=== PATIENT | female | born 1990 | race Caucasian/White ===

== ENCOUNTER 2020-05-22 22:22 | Emergency (ER) | payer MEDICARE, MEDICAID ==
[2020-05-22] MEDS ORDERED: Albuterol/Ipratropium 3.0-0.5 MG/3 ML Neb Soln NEB ONE (22:24)
[2020-05-22] MEDS ORDERED: Sodium Chloride 0.9% 2.5 ML Syringe FLUSH PRN (22:24)
[2020-05-22] MEDS ORDERED: Sodium Chloride 0.9% 10 ML Syringe FLUSH PRN (22:24)
[2020-05-22] MEDS ORDERED: methylPREDNISolone Sodium Succinate 125 MG/2 ML SDV IVPUSH ONE (22:24)
[2020-05-22] MEDS ORDERED: LORazepam 2 MG/ML SDV IM ONE (22:27)
[2020-05-22] MEDS ORDERED: Acetaminophen 325 MG Tab PO ONE (22:39)
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
--- NOTE | 2020-05-22 23:10 | CR ---
INDICATION: Dyspnea TECHNIQUE: Chest radiograph 1 view COMPARISON: None FINDINGS: Moderate to severe degradation of image quality noted due to body habitus. Mediastinum: The mediastinum is normal in appearance. Mild cardiac enlargement is present but may be accentuated by the portable technique. Lung: Both lungs are unremarkable in appearance. No sign of pleural effusion seen. No pneumothorax is identified. Bone and Soft tissue: Unremarkable for age. IMPRESSION: 1. Mild cardiac enlargement is present but may be accentuated by the portable technique. Dictated by Lewis Nieves MD @ 05/22/2020 11:09:21 PM Dictated by: Lewis Nieves MD @ 05/22/2020 23:09:25 (Electronically Signed)
== END 2020-05-22 23:40 | disposition home or self-care (01) ==
LOC: MW.ED 22:22
DX: F41.9 Anxiety disorder, unspecified (principal); J45.909 Unspecified asthma, uncomplicated; R51.9 Headache, unspecified
CPT/HCPCS: 71045; 96372; 99283; A9270; J2060

== ENCOUNTER 2020-06-05 10:04 | Emergency (ER) | payer MEDICARE, MEDICAID ==
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
[2020-06-05] MEDS ORDERED: Ondansetron 4 MG Tab.DIS PO ONE (10:55)
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
== END 2020-06-05 12:33 | disposition home or self-care (01) ==
LOC: MW.ED 10:04
DX: S16.1XXA Strain of muscle, fascia and tendon at neck level, initial encounter (principal); Z79.899 Other long term (current) drug therapy; Y04.0XXA Assault by unarmed brawl or fight, initial encounter
CPT/HCPCS: 36415; 70450; 70450-26; 72125; 72125-26; 72128; 72128-26; 84703; 99284; 99285-25

== ENCOUNTER 2020-08-09 20:09 | Emergency (ER) | payer MEDICARE, MEDICAID ==
[2020-08-09] MEDS ORDERED: Amoxicillin/Clavulanate K 875-125 MG Tab PO ONE (21:40)
[2020-08-09] MEDS ORDERED: Ketorolac 60 MG/2 ML SDV IM ONE (21:40)
--- NOTE | 2020-08-09 21:43 | EDM.PDOC ---
ED HPI GENERAL MEDICAL PROBLEM - General Chief Complaint: General Stated Complaint: RT SIDE TOOTH PAIN Time Seen by Provider: 08/09/20 20:21 Source of Information: Reports: Patient History Limitations: Reports: No Limitations - History of Present Illness INITIAL COMMENTS - FREE TEXT/NARRATIVE: HISTORY AND PHYSICAL: History of present illness: The patient is a 30-year-old female who presents to the emergency department with complaints of right lower back molar dental pain for 4 days. The patient states that she has had dental pain like this in the past because she does not have dental insurance and just cannot afford it. Review of systems: As per history of present illness and below otherwise all systems reviewed and negative. Past medical history: As per history of present illness and as reviewed below otherwise noncontributory. Surgical history: As per history of present illness and as reviewed below otherwise noncontributory. Social history: See social history for further information Family history: As per history of present illness and as reviewed below otherwise noncontributory. Physical exam: General: Well developed and well nourished. Alert and orientated x 3. Nontoxic in appearance and in no acute distress. Vital signs are stable and have been reviewed by me. Nursing notes were reviewed. HEENT: Atraumatic, normocephalic, pupils equal and reactive bilaterally, negative for conjunctival pallor or scleral icterus, mucous membranes moist, throat clear, neck supple, nontender, trachea midline. Lower back mentation is very poor. The patient has multiple broken teeth at the gumline. The back 3 molars gums are swollen and inflamed. No drooling or trismus noted. No meningeal signs. No hot potato voice noted. Lungs: Clear to auscultation bilaterally. No wheezes, rales, or rhonchi. Chest nontender. Normal work of breathing, no accessory muscles used. Heart: S1S2, regular rate and rhythm without overt murmur, gallops, or rubs. No JVD. No peripheral edema Abdomen: Soft, nondistended, nontender. Normoactive bowel sounds. Negative for masses or costovertebral tenderness. Skin: Intact, warm, dry. No lesions or rashes noted. Hematologic: No petechiae or purpra. Mucosa appropriate color and normal nail bed color and refill. Extremities: Atraumatic, moves all extremities per self without difficulty or deficits, negative for cords or calf pain. Neurovascular unremarkable. Neuro: Awake, alert, oriented. Cranial nerves II through XII unremarkable. Cerebellum unremarkable. Motor and sensory unremarkable throughout. Exam nonfocal. Psychiatric: Mood and affect are appropriate. Normal thought process. Answering questions appropriately. Notes: *This patient was seen and evaluated during the 2019 SARS-CoV-2 novel coronavirus pandemic period. Community viral transmission is ongoing at time of this encounter and the emergency department is operating under pandemic response procedures. Stated above the patient presents with dental pain for 4 days. She says that she is unable to afford dental pain. I have offered Toradol 60 mg IM which the patient has agreed to for pain control. I have ordered an antibiotic Augmentin 875 for the infection. I offered a dental ball and the patient declined. I will discharge the patient with a prescription for Augmentin 875 twice daily for 7 days. She understands definitive care needs to be by a dentist. I have talked with the patient about today's findings, in addition to providing specific details for plan of care. Reassessment at the time of disposition demonstrates that the patient is in no acute distress. The patient is stable for discharge, counseling was provided and we discussed in great detail signs and symptoms that would prompt them to return to the Emergency Department. Medication, follow up and supportive care measures were reviewed and discussed. Voices understanding and is agreeable to plan of care. Denies any further questions or concerns at this time. Therapeutics: Toradol 60 mg, Augmentin 875 mg Prescription: Augmentin 875 mg p.o. twice daily for 7 days Impression: Dental caries Plan: 1. You were evaluated today on an emergent basis. Your right lower back molar dental pain was evaluated and found to be infected. I treated your pain with Toradol 60 mg injection. I have prescribed Augmentin 875 twice daily for 7 days. You received your first dose in the emergency department. Definitive care is to follow-up with a dentist. Use warm for pain relief. 2. You can alternate Tylenol and ibuprofen as needed for pain and fever management. 3. We encourage you to follow up with your primary care provider and/or recommended specialist in the next few days for re-evaluation and further care/management. 4. If your symptoms should worsen, new symptoms develop or any of the signs and symptoms we discussed should arise please return to the emergency room or call 911 (if needed). Definitive disposition and diagnosis as appropriate pending reevaluation and review of above. right lower jaw Pain Score (Numeric/FACES): 10 - Related Data Allergies Allergy/AdvReac Type Severity Reaction Status Date / Time No Known Allergies Allergy Verified 08/09/20 21:24 Home Meds: Home Meds Escitalopram [Lexapro] 10 mg PO DAILY 06/05/20 [History] Ibuprofen [Ibu] 800 mg PO BID PRN #30 tablet 06/05/20 [Rx] Amoxicillin/Clavulanate K [Augmentin 875-125 MG] 1 tab PO BID 7 Days #13 tab 08/09/20 [Rx] traZODone 50 mg PO BEDTIME 08/09/20 [History] Past Medical History Respiratory History: Reports: Asthma Neurological History: Reports: Other (See Below) Other Neuro History: "stress induced seizures" Psychiatric History: Reports: Anxiety, Depression, PTSD, Other (See Below) Other Psychiatric History: "personality disorder" Endocrine/Metabolic History: Reports: Obesity/BMI 30+ Social & Family History - Family History Family Medical History: No Pertinent Family History - Caffeine Use Caffeine Use: Reports: None - Recreational Drug Use Recreational Drug Use: No ED ROS GENERAL - Review of Systems Review Of Systems: Comprehensive ROS is negative, except as noted in HPI. ED EXAM, GENERAL - Physical Exam Exam: See Below (See dictation) Course - Vital Signs Last Recorded V/S: Last Vital Signs Temp 97 F 08/09/20 21:18 Pulse 98 08/09/20 21:18 Resp 18 08/09/20 21:18 BP Pulse Ox 97 08/09/20 21:18 - Orders/Labs/Meds Meds: Medications Discontinued Medications Generic Name Dose Route Start Last Admin Trade Name Freq PRN Reason Stop Dose Admin Amoxicillin/Clavulanate Potassium 1 tab 08/09/20 21:40 Amoxicillin/Clavulanate K 875-125 Mg Tab PO 08/09/20 21:41 ONETIME ONE Ketorolac Tromethamine 60 mg 08/09/20 21:40 Ketorolac 60 Mg/2 Ml Sdv IM 08/09/20 21:41 ONETIME ONE Departure - Departure Time of Disposition: 21:42 Disposition: Home, Self-Care 01 Condition: Good Clinical Impression: Dental caries - Discharge Information *PRESCRIPTION DRUG MONITORING PROGRAM REVIEWED*: Not Applicable *COPY OF PRESCRIPTION DRUG MONITORING REPORT IN PATIENT YAW: Not Applicable Prescriptions: Amoxicillin/Clavulanate K [Augmentin 875-125 MG] 1 tab PO BID 7 Days #13 tab Instructions: Dental Caries, Pediatric Referrals: Gerson Hernandez MD [Primary Care Provider] - Forms: ED Department Discharge Additional Instructions: The following information is given to patients seen in the emergency department who are being discharged to home. This information is to outline your options for follow-up care. We provide all patients seen in our emergency department with a follow-up referral. The need for follow-up, as well as the timing and circumstances, are variable depending upon the specifics of your emergency department visit. If you don't have a primary care physician on staff, we will provide you with a referral. We always advise you to contact your personal physician following an emergency department visit to inform them of the circumstance of the visit and for follow-up with them and/or the need for any referrals to a consulting specialist. The emergency department will also refer you to a specialist when appropriate. This referral assures that you have the opportunity for follow-up care with a specialist. All of these measure are taken in an effort to provide you with optimal care, which includes your follow-up. Under all circumstances we always encourage you to contact your private physician who remains a resource for coordinating your care. When calling for follow-up care, please make the office aware that this follow-up is from your recent emergency room visit. If for any reason you are refused follow-up, please contact the [facility] Emergency Department at and asked to speak to the emergency department charge nurse. [facility] - Primary Care [address] [place] [id number] [address] Plan: 1. You were evaluated today on an emergent basis. Your right lower back molar dental pain was evaluated and found to be infected. I treated your pain with Toradol 60 mg injection. I have prescribed Augmentin 875 twice daily for 7 days. You received your first dose in the emergency department. Definitive care is to follow-up with a dentist. Use warm for pain relief. 2. You can alternate Tylenol and ibuprofen as needed for pain and fever management. 3. We encourage you to follow up with your primary care provider and/or r ecommended specialist in the next few days for re-evaluation and further care/management. 4. If your symptoms should worsen, new symptoms develop or any of the signs and symptoms we discussed should arise please return to the emergency room or call 911 (if needed). Sepsis Event Note (ED) - Evaluation Sepsis Screening Result: No Definite Risk - Focused Exam Vital Signs: Vital Signs Temp Pulse Resp Pulse Ox 08/09/20 21:18 97 F 98 18 97
== END 2020-08-09 22:10 | disposition home or self-care (01) ==
LOC: MW.ED 20:09
DX: K02.9 Dental caries, unspecified (principal); J45.909 Unspecified asthma, uncomplicated; E66.9 Obesity, unspecified; Z68.42 Body mass index [BMI] 45.0-49.9, adult; Z79.899 Other long term (current) drug therapy
CPT/HCPCS: 96372; 99282; A9270; J1885; 99283

== ENCOUNTER 2020-08-11 00:58 | Emergency (ER) | payer MEDICARE, MEDICAID ==
[2020-08-11] MEDS ORDERED: Ketorolac 30 MG/ML SDV IM ONE (01:27)
--- NOTE | 2020-08-11 01:34 | EDM.PDOC ---
ED HPI GENERAL MEDICAL PROBLEM - General Chief Complaint: General Stated Complaint: JAW PAIN- RIGHT SIDE Time Seen by Provider: 08/11/20 01:08 - History of Present Illness INITIAL COMMENTS - FREE TEXT/NARRATIVE: History of present illness: [] The patient complains of 3 days of severe pain in the area of her teeth #30 and 31 that are carious and she is was seen here yesterday and was started on Augmentin which she claims she is taking. The patient has no trismus ptyalism or difficulty with speech. There is no mass in her neck. She claims she cannot get into see a dentist because she does not have insurance or money. Review of systems: As per history of present illness and below otherwise all systems reviewed and negative. Past medical history: As per history of present illness and as reviewed below otherwise nonc ontributory. Surgical history: As per history of present illness and as reviewed below otherwise noncontributory. Social history: No reported history of drug or alcohol abuse. Family history: As per history of present illness and as reviewed below otherwise noncontributory. Physical exam: Constitutional - well developed, well-nourished and in no acute distress HEENT -carious teeth especially #30 and 31 with #32 missing. No trismus. Able to manage her secretions. Normal voice. No neck mass. Normocephalic, no evidence of trauma - external nose and mouth normal - no mass in neck and no JVD - mucosae moist EYES - full EOM, PERRL, no icterus - no evidence of inflammation, injection, or drainage Respiratory - no respiratory distress, equal bilateral expansion Cardiovascular - Regular Rhythm with S1 and S2 appreciated and no murmur, gallop or rub. Musculoskeletal no gross deformity of long bones or joints - no tenderness, swelling or edema Neurologic - Alert and oriented times four - CN II-XII grossly intact - motor sensory and coordination symmetrically normal Psychiatric - appropriate mood and affect with normal thought content Hematologic - No petechiae or purpura - mucosa appropriate color and sclera not pale - normal nail bed color and refill Integument - no rash or evidence of trauma - normal turgor Diagnostics: [] Therapeutics: [] Impression: [] Plan: [] Definitive disposition and diagnosis as appropriate pending reevaluation and review of above. Right Jaw Pain Score (Numeric/FACES): 7 - Related Data Allergies Allergy/AdvReac Type Severity Reaction Status Date / Time No Known Allergies Allergy Verified 08/09/20 21:24 Home Meds: Home Meds Escitalopram [Lexapro] 10 mg PO DAILY 06/05/20 [History] Ibuprofen [Ibu] 800 mg PO BID PRN #30 tablet 06/05/20 [Rx] Amoxicillin/Clavulanate K [Augmentin 875-125 MG] 1 tab PO BID 7 Days #13 tab 08/09/20 [Rx] traZODone 50 mg PO BEDTIME 08/09/20 [History] Acetaminophen/oxyCODONE [Percocet 325-5 MG] 2 each PO Q4HR PRN #14 tab 08/11/20 [Rx] Past Medical History HEENT History: Reports: None Cardiovascular History: Reports: None Respiratory History: Reports: Asthma Neurological History: Reports: Other (See Below) Other Neuro History: "stress induced seizures" Psychiatric History: Reports: Anxiety, Depression, PTSD, Other (See Below) Other Psychiatric History: "personality disorder" Endocrine/Metabolic History: Reports: Obesity/BMI 30+ Social & Family History - Family History Family Medical History: No Pertinent Family History - Tobacco Use Tobacco Use Status *Q: Never Tobacco User - Caffeine Use Caffeine Use: Reports: None - Recreational Drug Use Recreational Drug Use: No ED ROS GENERAL - Review of Systems Review Of Systems: Comprehensive ROS is negative, except as noted in HPI. ED EXAM, GENERAL - Physical Exam Exam: See Below Free Text/Narrative:: Physical exam is in the HPI Course - Vital Signs Last Recorded V/S: Last Vital Signs Temp 36.2 C 08/11/20 01:09 Pulse 93 08/11/20 01:09 Resp 18 08/11/20 01:09 BP 123/84 08/11/20 01:09 Pulse Ox 96 08/11/20 01:09 - Orders/Labs/Meds Meds: Medications Discontinued Medications Generic Name Dose Route Start Last Admin Trade Name Freq PRN Reason Stop Dose Admin Ketorolac Tromethamine 30 mg 08/11/20 01:27 Ketorolac 30 Mg/Ml Sdv IM 08/11/20 01:28 ONETIME ONE Departure - Departure Time of Disposition: 01:30 Disposition: Home, Self-Care 01 Condition: Good Clinical Impression: Dental abscess - Discharge Information Prescriptions: Acetaminophen/oxyCODONE [Percocet 325-5 MG] 2 each PO Q4HR PRN #14 tab PRN Reason: Pain (Severe 7-10) Instructions: Dental Abscess, [id number] Referrals: Gerson Hernandez MD [Primary Care Provider] - Additional Instructions: Try to see a dentist. [facility] - Primary Care [address] [place] [address] [facility] [address] [place] [id number] The following information is given to patients seen in the emergency department who are being discharged to home. This information is to outline your options for follow-up care. We provide all patients seen in our emergency department with a follow-up referral. The need for follow-up, as well as the timing and circumstances, are variable depending upon the specifics of your emergency department visit. If you don't have a primary care physician on staff, we will provide you with a referral. We always advise you to contact your personal physician following an emergency department visit to inform them of the circumstance of the visit and for follow-up with them and/or the need for any referrals to a consulting specialist. The emergency department will also refer you to a specialist when appropriate. This referral assures that you have the opportunity for follow-up care with a specialist. All of these measure are taken in an effort to provide you with optimal care, which includes your follow-up. Under all circumstances we always encourage you to contact your private physician who remains a resource for coordinating your care. When calling for follow-up care, please make the office aware that this follow-up is from your recent emergency room visit. If for any reason you are refused follow-up, please contact the [facility] Emergency Department at and asked to speak to the emergency department charge nurse. Sepsis Event Note (ED) - Evaluation Sepsis Screening Result: No Definite Risk - Focused Exam Vital Signs: Vital Signs Temp Pulse Resp BP Pulse Ox 08/11/20 01:09 36.2 C 93 18 123/84 96
== END 2020-08-11 01:45 | disposition home or self-care (01) ==
LOC: MW.ED 00:58
DX: K04.7 Periapical abscess without sinus (principal); E66.9 Obesity, unspecified; Z68.30 Body mass index [BMI] 30.0-30.9, adult
CPT/HCPCS: 96372; 99282; J1885; 99283

== ENCOUNTER 2020-09-26 01:39 | Emergency (ER) | payer MEDICARE, MEDICAID ==
[2020-09-26] MEDS ORDERED: Ibuprofen 600 MG Tab PO ONE (01:48)
[2020-09-26] MEDS ORDERED: Cephalexin 500 MG Cap PO ONE (01:48)
[2020-09-26] MEDS ORDERED: traMADol 50 MG Tab PO ONE (01:48)
--- NOTE | 2020-09-26 01:52 | EDM.PDOC ---
ED HPI GENERAL MEDICAL PROBLEM - General Chief Complaint: General Stated Complaint: TOOTH PAIN Time Seen by Provider: 09/26/20 01:50 - History of Present Illness INITIAL COMMENTS - FREE TEXT/NARRATIVE: HISTORY AND PHYSICAL: History of present illness: This 30-year-old female who presents ER today secondary to dental pain to her right lower and left lower molars x1 to 2 days. Patient reports that she has extremely poor dentition but has been unable to see dentist secondary to financial issues. Patient ports that she is had work done on her 6 upper teeth and that her Medicaid only covers 6 teeth in a lifetime as everything left to be [id number]. Patient denies any recent fevers, shakes, chills, nausea, vomiting, diarrhea, dysuria, frequency, urgency. Review of systems: As per history of present illness and below otherwise all systems reviewed and negative. Past medical history: As per history of present illness and as reviewed below otherwise noncontributory. Surgical history: As per history of present illness and as reviewed below otherwise noncontributory. Social history: No reported history of drug abuse. Family history: As per history of present illness and as reviewed below otherwise noncont ributory. Physical exam: This patient was seen and evaluated during the 2019 SARS-CoV-2 novel coronavirus pandemic period. Community viral transmission is ongoing at time of this encounter and the emergency department is operating under pandemic response procedures. Constitutional: Patient is oriented to person, place, and time. Appears well- developed and well-nourished. No distress. HEENT: Moist mucous membranes Head: Normocephalic and atraumatic Eyes: Right eye exhibits no discharge. Left eye exhibits no discharge. No scleral icterus Neck: Normal range of motion. No tracheal deviation present. Cardiovascular: Normal rate and regular rhythm. Pulmonary: Effort normal, no respiratory distress. Abdominal: No distention Musculoskeletal: Normal range of motion Neurologic: Alert and oriented to person, place and time. Skin: [place], warm and dry. Psychiatric: Normal mood and affect. Behavior is normal. Judgment and thought content normal. Nursing note and vital signs have been reviewed Patient's ER physical exam significant for tenderness to palpation to her right and left lower molars with significant amount of dental caries and fractured teeth. Patient has overall poor dentition. Diagnostics: [] Therapeutics: [] Assessment and plan: 30-year-old female presents ER today with dental pain. Patient will get started on Keflex and ibuprofen will be given a dose of Ultram tonight to assist her with her pain and discomfort. Patient has been encouraged to follow-up with dentist soon as possible Definitive disposition and diagnosis as appropriate pending reevaluation and review of above. - Related Data Allergies Allergy/AdvReac Type Severity Reaction Status Date / Time No Known Allergies Allergy Verified 09/26/20 01:49 Home Meds: Home Meds Escitalopram [Lexapro] 10 mg PO DAILY 06/05/20 [History] Ibuprofen [Ibu] 800 mg PO BID PRN #30 tablet 06/05/20 [Rx] Amoxicillin/Clavulanate K [Augmentin 875-125 MG] 1 tab PO BID 7 Days #13 tab 08/09/20 [Rx] traZODone 50 mg PO BEDTIME 08/09/20 [History] Acetaminophen/oxyCODONE [Percocet 325-5 MG] 2 each PO Q4HR PRN #14 tab 08/11/20 [Rx] Ibuprofen 600 mg PO Q6HR PRN #30 tablet 09/26/20 [Rx] cephALEXin [Keflex] 500 mg PO Q8H #30 cap 09/26/20 [Rx] Past Medical History HEENT History: Reports: None Cardiovascular History: Reports: None Respiratory History: Reports: Asthma Neurological History: Reports: Other (See Below) Other Neuro History: "stress induced seizures" Psychiatric History: Reports: Anxiety, Depression, PTSD, Other (See Below) Other Psychiatric History: "personality disorder" Endocrine/Metabolic History: Reports: Obesity/BMI 30+ Social & Family History - Family History Family Medical History: No Pertinent Family History - Caffeine Use Caffeine Use: Reports: None ED ROS GENERAL - Review of Systems Review Of Systems: See Below ED EXAM, GENERAL - Physical Exam Exam: See Below Course - Orders/Labs/Meds Orders: Active Orders 24 hr Category Date Time Status Ibuprofen [Motrin] Med 09/26/20 01:48 Once 600 mg PO ONETIME ONE cephALEXin [Keflex] Med 09/26/20 01:48 Once 500 mg PO ONETIME ONE traMADol [Ultram] Med 09/26/20 01:48 Once 50 mg PO ONETIME ONE Departure - Departure Time of Disposition: 01:50 Disposition: Home, Self-Care 01 Condition: Good Clinical Impression: Dental abscess, Dental caries - Discharge Information Instructions: Dental Abscess Referrals: Gesron Hernandez MD [Primary Care Provider] - Additional Instructions: Your seen and evaluated in the ER today secondary to toothache from multiple cavities and poor dentition. Please make appointment to follow-up with a dentist as soon as possible. You will get started on Keflex and ibuprofen to assist with your pain and discomfort. You have been given a dose of Keflex, ibuprofen, Ultram in the ED. The following information is given to patients seen in the emergency department who are being discharged to home. This information is to outline your options for follow-up care. We provide all patients seen in our emergency department with a follow-up referral. The need for follow-up, as well as the timing and circumstances, are variable depending upon the specifics of your emergency department visit. If you don't have a primary care physician on staff, we will provide you with a referral. We always advise you to contact your personal physician following an emergency department visit to inform them of the circumstance of the visit and for follow-up with them and/or the need for any referrals to a consulting specialist. The emergency department will also refer you to a specialist when appropriate. This referral assures that you have the opportunity for follow-up care with a specialist. All of these measure are taken in an effort to provide you with optimal care, which includes your follow-up. Under all circumstances we always encourage you to contact your private physician who remains a resource for coordinating your care. When calling for follow-up care, please make the office aware that this follow-up is from your recent emergency room visit. If for any reason you are refused follow-up, please contact the [facility] Emergency Department at and asked to speak to the emergency department charge nurse. [facility] - Primary Care [address] [place] [address] [id number] [address] [id number] - My Orders Last 24 Hours: My Active Orders 09/26/20 01:48 Ibuprofen [Motrin] 600 mg PO ONETIME ONE cephALEXin [Keflex] 500 mg PO ONETIME ONE traMADol [Ultram] 50 mg PO ONETIME ONE - Assessment/Plan Last 24 Hours: My Active Orders 09/26/20 01:48 Ibuprofen [Motrin] 600 mg PO ONETIME ONE cephALEXin [Keflex] 500 mg PO ONETIME ONE traMADol [Ultram] 50 mg PO ONETIME ONE
== END 2020-09-26 02:16 | disposition home or self-care (01) ==
LOC: MW.ED 01:39
DX: K04.7 Periapical abscess without sinus (principal); K02.9 Dental caries, unspecified; J45.909 Unspecified asthma, uncomplicated; E66.9 Obesity, unspecified; Z68.41 Body mass index [BMI] 40.0-44.9, adult; Z79.899 Other long term (current) drug therapy
CPT/HCPCS: 99282; A9270; 99283

== ENCOUNTER 2020-10-04 17:37 | Emergency (ER) | payer MEDICARE, MEDICAID ==
--- NOTE | 2020-10-04 19:49 | EDM.PDOC ---
ED HPI GENERAL MEDICAL PROBLEM - General Chief Complaint: Allergic Reaction Stated Complaint: POSSIBLE ALLERGIC REACTION FROM COVID SHOT Time Seen by Provider: 10/04/20 19:38 Source of Information: Reports: Patient - History of Present Illness INITIAL COMMENTS - FREE TEXT/NARRATIVE: History of present illness: 30-year-old female presenting with left arm redness and rash that has been worsening over the last 3 days since receiving the Covid shot. She did not have any other symptoms including no body aches or fevers. She received the [employer] vaccine. She reports she has never had a reaction like this to vaccines in the past. She has not had any difficulty breathing or new onset throat tightness. She reports she always has some throat soreness that has not changed at all. Review of systems: As per history of present illness and below otherwise all systems reviewed and negative. Past medical history: As per history of present illness and as reviewed below otherwise noncontrib utory. Asthma, anxiety Surgical history: As per history of present illness and as reviewed below otherwise noncontributory. Social history: No reported history of drug or alcohol abuse. Never smoker Family history: As per history of present illness and as reviewed below otherwise noncontributory. Physical exam: GEN: no acute distress, well appearing HEENT: Atraumatic, normocephalic, mucous membranes moist, Neck: supple, nontender, trachea midline. Lungs: No respiratory distress. Heart: RRR Abdomen: Nondistended Back: Full range of motion Extremities: Atraumatic. Neurovascularly intact. Mildly tender over the left deltoid area where shot was placed. Erythema at this area. Neuro: Awake, alert, oriented. Neuro Exam nonfocal. Skin: warm, dry, erythema and induration surrounding the vaccination site. Minimally warm to touch. No fluctuance. No drainage. Diagnostics: None Therapeutics: Plan for Benadryl at home MDM: Well-appearing, no distress, no fevers or chills, redness at site of Covid vaccination. Suspect immune response and not acute infection. No drainage or fluctuance. Discussed plan with patient to take Benadryl or Zyrtec p.o. and topical Benadryl/cool compresses for symptom relief and monitor zone of redness. Do not suspect infection, discussed plan of care with patient. Impression: Immune response to Covid vaccine Plan: [] Definitive disposition and diagnosis as appropriate pending reevaluation and review of above. Left Arm Pain Score (Numeric/FACES): 5 - Related Data Allergies Allergy/AdvReac Type Severity Reaction Status Date / Time No Known Allergies Allergy Verified 09/26/20 01:49 Home Meds: Home Meds Escitalopram [Lexapro] 10 mg PO DAILY 06/05/20 [History] traZODone 50 mg PO BEDTIME 08/09/20 [History] Ibuprofen 600 mg PO Q6HR PRN #30 tablet 09/26/20 [Rx] Past Medical History HEENT History: Reports: None Cardiovascular History: Reports: None Respiratory History: Reports: Asthma Genitourinary History: Reports: None Neurological History: Reports: Other (See Below) Other Neuro History: "stress induced seizures" Psychiatric History: Reports: Anxiety, Depression, PTSD, Other (See Below) Other Psychiatric History: "personality disorder" Endocrine/Metabolic History: Reports: Obesity/BMI 30+ Hematologic History: Reports: None - Infectious Disease History Infectious Disease History: Reports: None Social & Family History - Family History Family Medical History: No Pertinent Family History - Tobacco Use Tobacco Use Status *Q: Never Tobacco User - Caffeine Use Caffeine Use: Reports: None - Recreational Drug Use Recreational Drug Use: No ED ROS ALLERGIC REACTION - Review of Systems Review Of Systems: See Below (See HPI) ED EXAM GENERAL NO PERIP PULSE - Physical Exam Exam: See Below (See dictation) Course - Vital Signs Last Recorded V/S: Last Vital Signs Temp 97.3 F 10/04/20 19:29 Pulse 90 10/04/20 19:29 Resp 18 10/04/20 19:29 BP 138/89 10/04/20 19:29 Pulse Ox 96 10/04/20 19:29 Departure - Departure Time of Disposition: 19:55 Disposition: Home, Self-Care 01 Clinical Impression: Skin rash - Discharge Information Instructions: Rash, Adult Referrals: Gerson Hernandez MD [Primary Care Provider] - 2 Days Forms: ED Department Discharge Additional Instructions: The rash on your arm appears to be an immune response to the vaccine and not an allergic reaction or infection. However you may take allergy medications to help with your symptoms. You may take Zyrtec 10 mg daily or Benadryl 25 mg every 8 hours for the itching and you may use topical Benadryl cream to the area to help with the itching. You may also use cool compresses to the area to help with the symptoms. Do not use warm compresses or scratch at the red area as this will make the histamine response worse. If you develop a high fever or if the rash spreads outward or becomes worse, please seek reevaluation with your primary care physician or the emergency department. The following information is given to patients seen in the emergency department who are being discharged to home. This information is to outline your options for follow-up care. We provide all patients seen in our emergency department with a follow-up referral. The need for follow-up, as well as the timing and circumstances, are variable depending upon the specifics of your emergency department visit. If you don't have a primary care physician on staff, we will provide you with a referral. We always advise you to contact your personal physician following an emergency department visit to inform them of the circumstance of the visit and for follow-up with them and/or the need for any referrals to a consulting specialist. The emergency department will also refer you to a specialist when appropriate. This referral assures that you have the opportunity for follow-up care with a specialist. All of these measure are taken in an effort to provide you with optimal care, which includes your follow-up. Under all circumstances we always encourage you to contact your private physician who remains a resource for coordinating your care. When calling for follow-up care, please make the office aware that this follow-up is from your recent emergency room visit. If for any reason you are refused follow-up, please contact the [facility] Emergency Department at and asked to speak to the emergency department charge nurse. Sepsis Event Note (ED) - Evaluation Sepsis Screening Result: No Definite Risk - Focused Exam Vital Signs: Vital Signs Temp Pulse Resp BP Pulse Ox 10/04/20 19:29 97.3 F 90 18 138/89 96
== END 2020-10-04 20:07 | disposition home or self-care (01) ==
LOC: MW.ED 17:37
DX: R21 Rash and other nonspecific skin eruption (principal); E66.9 Obesity, unspecified; Z68.42 Body mass index [BMI] 45.0-49.9, adult
CPT/HCPCS: 99282

== ENCOUNTER 2020-11-14 18:12 | Emergency (ER) | payer MEDICARE, MEDICAID ==
--- NOTE | 2020-11-14 18:40 | EDM.PDOC ---
ED HPI GENERAL MEDICAL PROBLEM - General Chief Complaint: General Stated Complaint: POSSIBLY DISLOCATED JAW Time Seen by Provider: 11/14/20 18:28 - History of Present Illness INITIAL COMMENTS - FREE TEXT/NARRATIVE: History of present illness[] The patient has jaw pain after she had what she calls a seizure. 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 This time her jaw hurts after that. She reports severe pain with opening closing her jaw and she points to her TMJ. Review of systems: As per history of present illness and below otherwise all systems reviewed and negative. Past medical history: As per history of present illness and as reviewed below otherwise noncontributory. Surgical history: As per history of present illness and as reviewed below otherwise noncontributory. Social history: No reported history of drug or alcohol abuse. Family history: As per history of present illness and as reviewed below otherwise noncontributory. Physical exam: Constitutional - well developed, well-nourished and in no acute distress HEENT -tender TMJ on the right and worse when she goes to the range of motion however there is no real crepitation. She is able to hold a tongue depressor be tween her teeth on the right and the left. Normocephalic, no evidence of trauma - external nose and mouth normal - no mass in neck and no JVD - mucosae moist EYES - full EOM, PERRL, no icterus - no evidence of inflammation, injection, or drainage Respiratory - no respiratory distress, equal bilateral expansion Musculoskeletal no gross deformity of long bones or joints - no tenderness, swelling or edema Neurologic - Alert and oriented times four - CN II-XII grossly intact - motor sensory and coordination symmetrically normal Psychiatric - appropriate mood and affect with normal thought content Hematologic - No petechiae or purpura - mucosa appropriate color and sclera not pale - normal nail bed color and refill Integument - no rash or evidence of trauma - normal turgor Diagnostics: [] Therapeutics: [] Impression: [] Plan: [] Definitive disposition and diagnosis as appropriate pending reevaluation and review of above. Right Jaw Pain Score (Numeric/FACES): 6 - Related Data Allergies Allergy/AdvReac Type Severity Reaction Status Date / Time No Known Allergies Allergy Verified 11/14/20 18:27 Home Meds: Home Meds Escitalopram [Lexapro] 10 mg PO DAILY 06/05/20 [History] traZODone 50 mg PO BEDTIME 08/09/20 [History] Ibuprofen 600 mg PO Q6HR PRN #30 tablet 09/26/20 [Rx] Past Medical History HEENT History: Reports: None Cardiovascular History: Reports: None Respiratory History: Reports: Asthma Genitourinary History: Reports: None Neurological History: Reports: Other (See Below) Other Neuro History: "stress induced seizures" Psychiatric History: Reports: Anxiety, Depression, PTSD, Other (See Below) Other Psychiatric History: "personality disorder" Endocrine/Metabolic History: Reports: Obesity/BMI 30+ Hematologic History: Reports: None - Infectious Disease History Infectious Disease History: Reports: None Social & Family History - Family History Family Medical History: No Pertinent Family History - Tobacco Use Tobacco Use Status *Q: Never Tobacco User - Caffeine Use Caffeine Use: Reports: None - Recreational Drug Use Recreational Drug Use: No ED ROS GENERAL - Review of Systems Review Of Systems: Comprehensive ROS is negative, except as noted in HPI. ED EXAM, GENERAL - Physical Exam Exam: See Below Free Text/Narrative:: My physical exam is in the HPI Course - Vital Signs Last Recorded V/S: Last Vital Signs Temp 36.4 C 11/14/20 18:28 Pulse 98 11/14/20 18:28 Resp 18 11/14/20 18:28 BP 133/82 11/14/20 18:30 Pulse Ox 98 11/14/20 18:28 - Orders/Labs/Meds Orders: Active Orders 24 hr Category Date Time Status Mandible Comp Min 4V [CR] Stat Exams 11/14/20 18:34 Ordered Departure - Departure Time of Disposition: 18:41 Disposition: Home, Self-Care 01 Condition: Good Clinical Impression: TMJ arthritis - Discharge Information Instructions: Temporomandibular Joint Syndrome Referrals: Gerson Hernandez MD [Primary Care Provider] - Additional Instructions: Use a mouthpiece to avoid getting her teeth at night. Take anti-inflammatory medicine for the pain. Follow-up with oral surgery. Your dentist can recommend an oral surgeon but you may have to go to [place] or [place]. [facility] - Primary Care [address] [place] [id number] [facility] [address] [place] [address] The following information is given to patients seen in the emergency department who are being discharged to home. This information is to outline your options for follow-up care. We provide all patients seen in our emergency department with a follow-up referral. The need for follow-up, as well as the timing and circumstances, are variable depending upon the specifics of your emergency department visit. If you don't have a primary care physician on staff, we will provide you with a referral. We always advise you to contact your personal physician following an emergency department visit to inform them of the circumstance of the visit and for follow-up with them and/or the need for any referrals to a consulting specialist. The emergency department will also refer you to a specialist when appropriate. This referral assures that you have the opportunity for follow-up care with a specialist. All of these measure are taken in an effort to provide you with optimal care, which includes your follow-up. Under all circumstances we always encourage you to contact your private physician who remains a resource for coordinating your care. When calling for follow-up care, please make the office aware that this follow-up is from your re cent emergency room visit. If for any reason you are refused follow-up, please contact the [facility] Emergency Department at and asked to speak to the emergency department charge nurse. Sepsis Event Note (ED) - Evaluation Sepsis Screening Result: No Definite Risk - Focused Exam Vital Signs: Vital Signs Temp Pulse Resp BP Pulse Ox 11/14/20 18:30 133/82 11/14/20 18:28 36.4 C 98 18 98 - My Orders Last 24 Hours: My Active Orders 11/14/20 18:34 Mandible Comp Min 4V [CR] Stat - Assessment/Plan Last 24 Hours: My Active Orders 11/14/20 18:34 Mandible Comp Min 4V [CR] Stat
--- NOTE | 2020-11-14 20:02 | CR ---
HISTORY: Temporomandibular joint pain. Prior seizure. TECHNIQUE: Four views of the mandible. COMPARISON: No prior. FINDINGS: No TMJ dislocation. No acute fracture. Extensive dental hardware. Maxillary sinuses and frontal sinuses appear clear. Ethmoid air cells grossly clear. IMPRESSION: 1. No fracture. 2. No TMJ dislocation. Dictated by Barry Rashid MD @ 11/14/2020 8:01:46 PM (Electronically Signed)
== END 2020-11-14 20:31 | disposition home or self-care (01) ==
LOC: MW.ED 18:12
DX: M26.649 Arthritis of unspecified temporomandibular joint (principal); E66.9 Obesity, unspecified; Z68.1 Body mass index [BMI] 19.9 or less, adult
CPT/HCPCS: 70110; 70110-26; 99283-25

== ENCOUNTER 2020-12-13 09:39 | Emergency (ER) | payer MEDICARE, MEDICAID ==
[2020-12-13] MEDS ORDERED: Ondansetron 4 MG Tab.DIS PO ONE (10:22)
[2020-12-13] MEDS ORDERED: Acetaminophen 325 MG Tab PO ONE (10:22)
--- NOTE | 2020-12-13 10:29 | EDM.PDOC ---
ED HPI GENERAL MEDICAL PROBLEM - General Chief Complaint: ENT Problem Stated Complaint: TOOTH PAIN Time Seen by Provider: 12/13/20 09:43 Source of Information: Reports: Patient History Limitations: Reports: No Limitations - History of Present Illness INITIAL COMMENTS - FREE TEXT/NARRATIVE: HISTORY AND PHYSICAL: History of present illness: Review of systems: As per history of present illness and below otherwise all systems reviewed and negative. Past medical history: As per history of present illness and as reviewed below otherwise noncontributory. Surgical history: As per history of present illness and as reviewed below otherwise noncontributory. Social history: See social history for further information Family history: As per history of present illness and as reviewed below otherwise noncontributory. Physical exam: General: Well developed and well nourished. Alert and orientated x 3. Nontoxic in appearance and in no acute distress. Vital signs are stable and have been reviewed by me. Nursing notes were reviewed. HEENT: Atraumatic, normocephalic, pupils equal and reactive bilaterally, negative for conjunctival pallor or scleral icterus, mucous membranes moist, TMs normal bilaterally, throat clear, neck supple, nontender, trachea midline. Very poor dentition with multiple broken teeth along the right lower gumline. No drooling or trismus noted. No meningeal signs. No hot potato voice noted. Lungs: Normal work of breathing, no accessory muscles used. Heart: . No JVD. No peripheral edema Abdomen: Soft, nondistended, nontender. Normoactive bowel sounds. Negative for masses or costovertebral tenderness. Skin: Intact, warm, dry. No lesions or rashes noted. Hematologic: No petechiae or purpra. Mucosa appropriate color and normal nail bed color and refill. Extremities: Atraumatic, moves all extremities per self without difficulty or deficits, negative for cords or calf pain. Neurovascular unremarkable. Neuro: Awake, alert, oriented. Cranial nerves II through XII unremarkable. Cerebellum unremarkable. Motor and sensory unremarkable throughout. Exam nonfocal. Psychiatric: Mood and affect are appropriate. Normal thought process. Answering questions appropriately. Notes: *This patient was seen and evaluated during the 2019 SARS-CoV-2 novel coronavirus pandemic period. Community viral transmission is ongoing at time of this encounter and the emergency department is operating under pandemic response procedures. The patient is a 30-year-old female who presents to the emergency room with right lower jaw pain and is found to have extensive dental caries and very poor dentition. The patient states that she could be but it is too early to test and therefore declines a test. For this reason we will give the patient Tylenol for pain control and Zofran for her nausea. I have prescribed penicillin 500 mg 4 times daily for 10 days. The patient is agreeable with this discharge plan. I have talked with the patient about today's findings, in addition to providing specific details for plan of care. Reassessment at the time of disposition demonstrates that the patient is in no acute distress. The patient is stable for discharge, counseling was provided and we discussed in great detail signs and symptoms that would prompt them to return to the Emergency Department. Medication, follow up and supportive care measures were reviewed and discussed. Voices understanding and is agreeable to plan of care. Denies any further questions or concerns at this time. Therapeutics: Tylenol, Zofran Prescription: Penicillin 500 mg 4 times daily x10-day Impression: Dental caries Plan: 1. You were evaluated today on an emergent basis. Your pain was evaluated and found to have a dental infection of your right lower jaw. Definitive care is to see a dentist as you have extensive dental infection. As you were concerned that you could be I have given you Tylenol and for the pain control and Zofran for your nausea. Prescribed penicillin 500 mg daily 4 times a day for 10 days. Be sure to take the entire dose of the medication. You can use Tylenol for pain. 2. You can alternate Tylenol and ibuprofen as needed for pain and fever management. 3. We encourage you to follow up with your primary care provider and/or recommended specialist in the next few days for re-evaluation and further care/ management. 4. If your symptoms should worsen, new symptoms develop or any of the signs and symptoms we discussed should arise please return to the emergency room or call 911 (if needed). Definitive disposition and diagnosis as appropriate pending reevaluation and review of above. right tooth Pain Score (Numeric/FACES): 6 - Related Data Allergies Allergy/AdvReac Type Severity Reaction Status Date / Time amphetamine [From Adderall] Allergy Other Verified 12/13/20 10:27 dextroamphetamine Allergy Other Verified 12/13/20 10:27 [From Adderall] Home Meds: Home Meds Escitalopram [Lexapro] 10 mg PO DAILY 06/05/20 [History] traZODone 50 mg PO BEDTIME 08/09/20 [History] Ibuprofen 600 mg PO Q6HR PRN #30 tablet 09/26/20 [Rx] Penicillin V Potassium [Veetids] 500 mg PO Q6H 10 Days #40 tab 12/13/20 [Rx] Past Medical History HEENT History: Reports: None Cardiovascular History: Reports: None Respiratory History: Reports: Asthma Genitourinary History: Reports: None Neurological History: Reports: Other (See Below) Other Neuro History: "stress induced seizures" Psychiatric History: Reports: Anxiety, Depression, PTSD, Other (See Below) Other Psychiatric History: "personality disorder" Endocrine/Metabolic History: Reports: Obesity/BMI 30+ Hematologic History: Reports: None - Infectious Disease History Infectious Disease History: Reports: None Social & Family History - Family History Family Medical History: No Pertinent Family History - Caffeine Use Caffeine Use: Reports: None ED ROS ENT - Review of Systems Review Of Systems: Comprehensive ROS is negative, except as noted in HPI. ED EXAM, ENT - Physical Exam Exam: See Below (See dictation) Course - Vital Signs Last Recorded V/S: Last Vital Signs Temp 97.2 F 12/13/20 10:10 Pulse 101 H 12/13/20 10:38 Resp 16 12/13/20 10:38 BP 144/91 H 12/13/20 10:38 Pulse Ox 96 12/13/20 10:38 - Orders/Labs/Meds Meds: Medications Discontinued Medications Generic Name Dose Route Start Last Admin Trade Name Freq PRN Reason Stop Dose Admin Acetaminophen 975 mg 12/13/20 10:22 12/13/20 10:37 Acetaminophen 325 Mg Tab PO 12/13/20 10:23 975 mg NOW ONE Administration Ondansetron HCl 4 mg 12/13/20 10:22 12/13/20 10:37 Ondansetron 4 Mg Tab.Dis PO 12/13/20 10:23 4 mg ONETIME ONE Administration Departure - Departure Time of Disposition: 10:28 Disposition: Home, Self-Care 01 Condition: Good Clinical Impression: Dental caries extending into dentin - Discharge Information *PRESCRIPTION DRUG MONITORING PROGRAM REVIEWED*: Not Applicable *COPY OF PRESCRIPTION DRUG MONITORING REPORT IN PATIENT YAW: Not Applicable Prescriptions: Penicillin V Potassium [Veetids] 500 mg PO Q6H 10 Days #40 tab Instructions: Dental Caries, Adult Referrals: Gerson Hernandez MD [Primary Care Provider] - Forms: ED Department Discharge Additional Instructions: The following information is given to patients seen in the emergency department who are being discharged to home. This information is to outline your options for follow-up care. We provide all patients seen in our emergency department with a follow-up referral. The need for follow-up, as well as the timing and circumstances, are variable depending upon the specifics of your emergency department visit. If you don't have a primary care physician on staff, we will provide you with a referral. We always advise you to contact your personal physician following an emergency department visit to inform them of the circumstance of the visit and for follow-up with them and/or the need for any referrals to a consulting specialist. The emergency department will also refer you to a specialist when appropriate. This referral assures that you have the opportunity for follow-up care with a specialist. All of these measure are taken in an effort to provide you with optimal care, which includes your follow-up. Under all circumstances we always encourage you to contact your private physician who remains a resource for coordinating your care. When calling for follow-up care, please make the office aware that this follow-up is from your recent emergency room visit. If for any reason you are refused follow-up, please contact the [facility] Emergency Department at and asked to speak to the emergency department charge nurse. [facility] Primary [facility] [address] [place] [address] [id number] [address] [address] Sepsis Event Note (ED) - Evaluation Sepsis Screening Result: No Definite Risk - Focused Exam Vital Signs: Vital Signs Temp Pulse Resp BP Pulse Ox 12/13/20 10:38 101 H 16 144/91 H 96 12/13/20 10:10 97.2 F 95 16 157/99 H 96
== END 2020-12-13 10:42 | disposition home or self-care (01) ==
LOC: MW.ED 09:39
DX: K02.9 Dental caries, unspecified (principal); J45.909 Unspecified asthma, uncomplicated; E66.9 Obesity, unspecified; Z68.42 Body mass index [BMI] 45.0-49.9, adult; Z88.8 Allergy status to other drugs, medicaments and biological substances; Z79.899 Other long term (current) drug therapy
CPT/HCPCS: 99282; A9270

== ENCOUNTER 2021-01-10 15:19 | Emergency (ER) | payer MEDICARE, MEDICAID ==
--- NOTE | 2021-01-10 17:44 | PCM.EKG ---
#1 Interpretation EKG Interpretation Comments: EKG done 01/10/2021 at 3:51 PM shows sinus rhythm heart rate 84 HI 163 axis 73 QRS within normal limits ST and T minimal changes possibly secondary to baseline wander. Impression no acute injury
[2021-01-10] MEDS ORDERED: Sodium Chloride 0.9% 2.5 ML Syringe FLUSH PRN (19:51)
[2021-01-10] MEDS ORDERED: Sodium Chloride 0.9% 10 ML Syringe FLUSH PRN (19:51)
[2021-01-10] MEDS ORDERED: Acetaminophen/Butalbital/Caffeine 325-50-40 MG Tab PO ONE (19:52)
--- NOTE | 2021-01-10 19:54 | EDM.PDOC ---
ED HPI GENERAL MEDICAL PROBLEM - General Chief Complaint: Headache Stated Complaint: HEAD PAIN Time Seen by Provider: 01/10/21 19:46 Source of Information: Reports: Patient History Limitations: Reports: No Limitations - History of Present Illness INITIAL COMMENTS - FREE TEXT/NARRATIVE: 30-year-old female past medical history migraine headaches presents for left- sided headache. Patient states the headache is been going on for about the last 3 days and initially started behind her eye and into her left sabianist area but is now radiating into her left posterior head and neck. She states this feels different than her typical headaches. She denies any light sensitivity which is typical of her migraines. Denies any one-sided body weakness. Denies any slurred speech. Denies any fevers. Notes chronic cough unchanged. She does note some nausea but is not vomiting. She has tried Motrin at home without relief. Head Pain Score (Numeric/FACES): 7 - Related Data Allergies Allergy/AdvReac Type Severity Reaction Status Date / Time amphetamine [From Adderall] Allergy Other Verified 12/13/20 10:27 dextroamphetamine Allergy Other Verified 12/13/20 10:27 [From Adderall] Home Meds: Home Meds Escitalopram [Lexapro] 10 mg PO DAILY 06/05/20 [History] traZODone 50 mg PO BEDTIME 08/09/20 [History] Ibuprofen 600 mg PO Q6HR PRN #30 tablet 09/26/20 [Rx] Penicillin V Potassium [Veetids] 500 mg PO Q6H 10 Days #40 tab 12/13/20 [Rx] Amoxicillin/Potassium Clav [Augmentin 875-125 Tablet] 1 each PO BID 10 Days #20 tablet 01/10/21 [Rx] Fluticasone Propionate [Flonase] 2 spray YARIEL DAILY 14 Days #1 bottle 01/10/21 [Rx] Past Medical History HEENT History: Reports: None Cardiovascular History: Reports: None Respiratory History: Reports: Asthma Genitourinary History: Reports: None Neurological History: Reports: Other (See Below) Other Neuro History: "stress induced seizures" Psychiatric History: Reports: Anxiety, Depression, PTSD, Other (See Below) Other Psychiatric History: "personality disorder" Endocrine/Metabolic History: Reports: Obesity/BMI 30+ Hematologic History: Reports: None - Infectious Disease History Infectious Disease History: Reports: None - Past Surgical History GI Surgical History: Reports: Cholecystectomy Social & Family History - Family History Family Medical History: No Pertinent Family History - Caffeine Use Caffeine Use: Reports: None ED ROS GENERAL - Review of Systems Review Of Systems: Comprehensive ROS is negative, except as noted in HPI. ED EXAM, GENERAL - Physical Exam Exam: See Below Exam Limited By: No Limitations General Appearance: Alert, WD/WN, No Apparent Distress Eye Exam: Bilateral Eye: EOMI, PERRL Ears: Hearing Grossly Normal Throat/Mouth: Normal Voice, No Airway Compromise Head: Atraumatic, Normocephalic Neck: Normal Inspection Respiratory/Chest: No Respiratory Distress, Lungs Clear, Normal Breath Sounds, No Accessory Muscle Use Cardiovascular: Normal Peripheral Pulses, Regular Rate, Rhythm Extremities: Normal Inspection Neurological: Alert, Oriented, CN II-XII Intact, Normal Cognition, Normal Gait, No Motor/Sensory Deficits Psychiatric: Normal Affect, Normal Mood Skin Exam: Warm, Dry, Intact, Normal Color Course - Vital Signs Last Recorded V/S: Last Vital Signs Temp Pulse 88 01/10/21 15:48 Resp 16 01/10/21 15:48 BP 125/89 01/10/21 15:48 Pulse Ox 98 01/10/21 15:48 - Orders/Labs/Meds Orders: Active Orders 24 hr Category Date Time Status CULTURE URINE [MREF] Stat Lab 01/10/21 16:05 Stop Req Labs: Laboratory Tests 01/10/21 01/10/21 Range/Units 16:05 16:05 Urine Color YELLOW Urine Appearance SLT CLOUDY Urine pH 6.0 (5.0-8.0) Ur Specific Baker >= 1.030 (1.001-1.035) Urine Protein NEGATIVE (NEGATIVE) mg/dL Urine Glucose (UA) NEGATIVE (NEGATIVE) mg/dL Urine Ketones NEGATIVE (NEGATIVE) mg/dL Urine Occult Blood NEGATIVE (NEGATIVE) Urine Nitrite NEGATIVE (NEGATIVE) Urine Bilirubin NEGATIVE (NEGATIVE) Urine Urobilinogen 0.2 (<2.0) EU/dL Ur Leukocyte Esterase TRACE H (NEGATIVE) Urine RBC 0-2 (0-2/HPF) Urine WBC 2-3 (0-5/HPF) Ur Epithelial Cells FEW (NONE-FEW) Urine Bacteria FEW (NEGATIVE) Urine HCG, Qual NEGATIVE (NEGATIVE) Meds: Medications Discontinued Medications Generic Name Dose Route Start Last Admin Trade Name Freq PRN Reason Stop Dose Admin Acetaminophen/Butalbital/Caffeine 1 tab 01/10/21 19:52 01/10/21 20:10 Acetaminophen/Butalbital/Caffeine 325-50-40 Mg Tab PO 01/10/21 19:53 1 tab ONETIME ONE Administration Diphenhydramine HCl 25 mg 01/10/21 19:51 Diphenhydramine 50 Mg/Ml Sdv IVPUSH 01/10/21 19:52 ONETIME ONE Sodium Chloride 1,000 mls @ 999 mls/hr 01/10/21 19:51 Normal Saline IV 01/10/21 20:51 .Bolus ONE Ketorolac Tromethamine 15 mg 01/10/21 19:51 Ketorolac 15 Mg/Ml Sdv IVPUSH 01/10/21 19:52 STAT STA Metoclopramide HCl 10 mg 01/10/21 19:51 Metoclopramide 10 Mg/2 Ml Sdv IVPUSH 01/10/21 19:52 ONETIME ONE Sodium Chloride 10 ml 01/10/21 19:51 Sodium Chloride 0.9% 10 Ml Syringe FLUSH ASDIRECTED PRN Keep Vein Open Sodium Chloride 2.5 ml 01/10/21 19:51 Sodium Chloride 0.9% 2.5 Ml Syringe FLUSH ASDIRECTED PRN Keep Vein Open - Re-Assessments/Exams Free Text/Narrative Re-Assessment/Exam: 01/10/21 20:21 Patient declines labs and medications. She is willing to take Fioricet. 01/10/21 20:[address] without acute pathology. Patient does have large amount of left maxillary mucus consistent with possible sinusitis. Will place on Augmentin given the correlation with your pain. Departure - Departure Time of Disposition: 20:48 Disposition: Home, Self-Care 01 Condition: Good Clinical Impression: Sinusitis Qualifiers: Sinusitis location: frontal Chronicity: acute Recurrence: non-recurrent Qualified Code(s): J01.10 - Acute frontal sinusitis, unspecified - Discharge Information Prescriptions: Amoxicillin/Potassium Clav [Augmentin 875-125 Tablet] 1 each PO BID 10 Days #20 tablet Fluticasone Propionate [Flonase] 2 spray YARIEL DAILY 14 Days #1 bottle Instructions: Sinus Headache, [id number] Referrals: PCP,None [Primary Care Provider] - Forms: ED Department Discharge Additional Instructions: Your CT scan shows a large accumulation of mucus within your left frontal sinus es consistent with sinusitis. I prescribed a medication called Augmentin which is an antibiotic. I have also prescribed a medication called Flonase which is a nasal decongestant. The following information is given to patients seen in the emergency department who are being discharged to home. This information is to outline your options for follow-up care. We provide all patients seen in our emergency department with a follow-up referral. The need for follow-up, as well as the timing and circumstances, are variable depending upon the specifics of your emergency department visit. If you don't have a primary care physician on staff, we will provide you with a referral. We always advise you to contact your personal physician following an emergency department visit to inform them of the circumstance of the visit and for follow-up with them and/or the need for any referrals to a consulting specialist. The emergency department will also refer you to a specialist when appropriate. This referral assures that you have the opportunity for follow-up care with a specialist. All of these measure are taken in an effort to provide you with optimal care, which includes your follow-up. Under all circumstances we always encourage you to contact your private physician who remains a resource for coordinating your care. When calling for follow-up care, please make the office aware that this follow-up is from your recent emergency room visit. If for any reason you are refused follow-up, please contact the [facility] Emergency Department at and asked to speak to the emergency department charge nurse. Please follow up with your primary care physician. If you do not have a primary care physician, see below: [facility] [address] [place] [id number] [facility] [address] [place] [address] [facility] [address] [place] [id number] Sepsis Event Note (ED) - Evaluation Sepsis Screening Result: No Definite Risk - Focused Exam Vital Signs: Vital Signs Pulse Resp BP Pulse Ox 01/10/21 15:48 88 16 125/89 98
[2021-01-10] MEDS: Sodium Chloride 0.9% 1,000 ML IV ONE ×2 (20:10→21:21)
[2021-01-10] MEDS: Metoclopramide 10 MG/2 ML SDV IVPUSH ONE ×2 (20:11→21:21)
[2021-01-10] MEDS: Ketorolac 15 MG/ML SDV IVPUSH STA ×2 (20:11→21:21)
[2021-01-10] MEDS: diphenhydrAMINE 50 MG/ML SDV IVPUSH ONE ×2 (20:11→21:21)
--- NOTE | 2021-01-10 20:43 | CT ---
Clinical INDICATION: Left-sided headache for 3 days. TECHNIQUE: Axial noncontrast CT cuts were performed from the skull base to the vertex. FINDINGS: There is no intracranial mass, hemorrhage, infarction or contusion. There is no midline shift or transtentorial herniation. The calvarium is intact. There is a large amount of mucus almost entirely filling the left maxillary sinus. There is a trace of fluid in the right maxillary sinus. The orbital contents appear normal. IMPRESSION: 1. Normal-appearing brain. 2. There is large amount mucous almost entirely filling the left maxillary sinus. Please note that all CT scans at this facility use dose modulation, iterative reconstruction, and/or weight-based dosing when appropriate to reduce radiation dose to as low as reasonably achievable. Dictated by Harlan Curiel MD @ 01/10/2021 8:43:10 PM (Electronically Signed)
== END 2021-01-10 21:25 | disposition home or self-care (01) ==
LOC: MW.ED 15:19
DX: J01.10 Acute frontal sinusitis, unspecified (principal); E66.9 Obesity, unspecified; Z88.8 Allergy status to other drugs, medicaments and biological substances; Z68.30 Body mass index [BMI] 30.0-30.9, adult
CPT/HCPCS: 70450; 81001; 81025; 87086; 93005; 99284; A9270; J1200; J1885; J2765; J7030

== ENCOUNTER 2021-01-24 22:10 | Emergency (ER) | payer MEDICARE, MEDICAID ==
[2021-01-24] MEDS ORDERED: Azithromycin 250 MG Tab PO ONE (22:49)
[2021-01-24] MEDS ORDERED: Ibuprofen 600 MG Tab PO ONE (22:49)
--- NOTE | 2021-01-24 22:51 | EDM.PDOC ---
ED HPI GENERAL MEDICAL PROBLEM - General Chief Complaint: General Stated Complaint: POSSIBLE SINUS INFECTION Time Seen by Provider: 01/24/21 22:38 - History of Present Illness INITIAL COMMENTS - FREE TEXT/NARRATIVE: HISTORY AND PHYSICAL: History of present illness: This 30-year-old female who presents ER today secondary to cough, congestion, sinus pressure that she feels is similar to her prior sinus infections. Patient ports she has not had a Covid vaccination. Patient is refusing Covid testing in the ED per her report. Patient denies any documented fevers but her boyfriend ports that she did feel warm a couple days ago. Patient denies any vomiting or diarrhea. Patient reports has been tolerating p.o. solids and liquids very well. Patient denies any dysuria, frequency, urgency, chest pain, dull pain. Patient reports that she has cough with some dark sputum. Patient has any shortness of breath. Review of systems: As per history of present illness and below otherwise all systems reviewed and negative. Past medical history: As per history of present illness and as reviewed below otherwise noncontributory. Surgical history: As per history of present illness and as reviewed below otherwise noncontrib utory. Social history: No reported history of drug abuse. Family history: As per history of present illness and as reviewed below otherwise noncontributory. Physical exam: This patient was seen and evaluated during the 2019 SARS-CoV-2 novel coronavirus pandemic period. Community viral transmission is ongoing at time of this encounter and the emergency department is operating under pandemic response procedures. Constitutional: Patient is oriented to person, place, and time. Appears well- developed and well-nourished. No distress. HEENT: Moist mucous membranes Head: Normocephalic and atraumatic Eyes: Right eye exhibits no discharge. Left eye exhibits no discharge. No scleral icterus Neck: Normal range of motion. No tracheal deviation present. Cardiovascular: Normal rate and regular rhythm. Pulmonary: Effort normal, no respiratory distress. Abdominal: No distention Musculoskeletal: Normal range of motion Neurologic: Alert and oriented to person, place and time. Skin: [place], warm and dry. Psychiatric: Normal mood and affect. Behavior is normal. Judgment and thought content normal. Nursing note and vital signs have been reviewed Diagnostics: Patient refused testing for Covid/influenza Therapeutics: Zithromax 500 mg p.o. Assessment and plan: 30-year-old female who presents ER today with signs symptoms consistent with a viral upper respiratory infection versus sinus infection versus Covid versus influenza. Patient is adamantly refusing swabbing for Covid and influenza testing. I have discussed with the patient that she should quarantine herself since I am unable to rule out Covid. Patient was given a prescription for Zithromax per her request and she is requesting a work note for this weekend. Patient reports that she does not work until the following weekend. Definitive disposition and diagnosis as appropriate pending reevaluation and review of above. generalized Pain Score (Numeric/FACES): 4 - Related Data Allergies Allergy/AdvReac Type Severity Reaction Status Date / Time amphetamine [From Adderall] Allergy Other Verified 01/24/21 22:23 dextroamphetamine Allergy Other Verified 01/24/21 22:23 [From Adderall] Home Meds: Home Meds Escitalopram [Lexapro] 10 mg PO DAILY 06/05/20 [History] traZODone 50 mg PO BEDTIME 08/09/20 [History] Azithromycin [Zithromax] 250 mg PO DAILY #4 tablet 01/24/21 [Rx] Ibuprofen 600 mg PO Q6HR PRN #30 tablet 01/24/21 [Rx] Past Medical History HEENT History: Reports: None Cardiovascular History: Reports: None Respiratory History: Reports: Asthma Gastrointestinal History: Reports: None Genitourinary History: Reports: None 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 Musculoskeletal History: Reports: None Neurological History: Reports: Other (See Below) Other Neuro History: "stress induced seizures" Psychiatric History: Reports: Anxiety, Depression, PTSD, Other (See Below) Other Psychiatric History: "personality disorder" Endocrine/Metabolic History: Reports: Obesity/BMI 30+ 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 Hematologic History: Reports: None Immunologic History: Reports: None Oncologic (Cancer) History: Reports: None Dermatologic History: Reports: None - Infectious Disease History Infectious Disease History: Reports: None - Past Surgical History Head Surgeries/Procedures: Reports: None GI Surgical History: Reports: Cholecystectomy Social & Family History - Family History Family Medical History: No Pertinent Family History - Caffeine Use Caffeine Use: Reports: None - Recreational Drug Use Recreational Drug Use: No ED ROS GENERAL - Review of Systems Review Of Systems: See Below ED EXAM, GENERAL - Physical Exam Exam: See Below Course - Vital Signs Last Recorded V/S: Last Vital Signs Temp 96.9 F 01/24/21 22:20 Pulse 104 H 01/24/21 22:20 Resp 20 01/24/21 22:20 BP 147/89 H 01/24/21 22:20 Pulse Ox 96 01/24/21 22:20 Departure - Departure Time of Disposition: 22:48 Disposition: Home, Self-Care 01 Condition: Good Clinical Impression: Sinusitis, Viral illness - Discharge Information Instructions: Sinusitis, Adult, [id number], Viral Illness, Adult Referrals: Gerson Hernandez MD [Primary Care Provider] - Additional Instructions: You were seen and evaluated in the ER today secondary to signs and symptoms of a sinus infection, COVID-19, influenza, or whole host of other viral infections. You will be started on Zithromax in the ED. If you change your mind about wanting to be tested for Covid or influenza please return to the ED we can do that for you. The following information is given to patients seen in the emergency department who are being discharged to home. This information is to outline your options for follow-up care. We provide all patients seen in our emergency department w ith a follow-up referral. The need for follow-up, as well as the timing and circumstances, are variable depending upon the specifics of your emergency department visit. If you don't have a primary care physician on staff, we will provide you with a referral. We always advise you to contact your personal physician following an emergency department visit to inform them of the circumstance of the visit and for follow-up with them and/or the need for any referrals to a consulting specialist. The emergency department will also refer you to a specialist when appropriate. This referral assures that you have the opportunity for follow-up care with a specialist. All of these measure are taken in an effort to provide you with optimal care, which includes your follow-up. Under all circumstances we always encourage you to contact your private physician who remains a resource for coordinating your care. When calling for follow-up care, please make the office aware that this follow-up is from your recent emergency room visit. If for any reason you are refused follow-up, please contact the [facility] Emergency Department at and asked to speak to the emergency department charge nurse. [facility] [address], [place] [address] [address] Sepsis Event Note (ED) - Evaluation Sepsis Screening Result: No Definite Risk - Focused Exam Vital Signs: Vital Signs Temp Pulse Resp BP Pulse Ox 01/24/21 22:20 96.9 F 104 H 20 147/89 H 96
== END 2021-01-24 23:01 | disposition home or self-care (01) ==
LOC: MW.ED 22:10
DX: B34.9 Viral infection, unspecified (principal); J32.9 Chronic sinusitis, unspecified; E66.9 Obesity, unspecified; Z68.42 Body mass index [BMI] 45.0-49.9, adult; Z88.8 Allergy status to other drugs, medicaments and biological substances
CPT/HCPCS: 99283; A9270

== ENCOUNTER 2021-06-20 02:46 | Emergency (ER) | payer MEDICARE, MEDICAID ==
[2021-06-20] MEDS ORDERED: Ketorolac 60 MG/2 ML SDV IM ONE (03:13)
== END 2021-06-20 03:30 | disposition home or self-care (01) ==
LOC: MW.ED 02:46
DX: K02.9 Dental caries, unspecified (principal); E66.9 Obesity, unspecified; Z68.42 Body mass index [BMI] 45.0-49.9, adult; Z90.49 Acquired absence of other specified parts of digestive tract; Z87.898 Personal history of other specified conditions; Z88.8 Allergy status to other drugs, medicaments and biological substances
CPT/HCPCS: 96372; 99282; J1885

== ENCOUNTER 2021-07-19 19:30 | Emergency (ER) | payer MEDICARE, MEDICAID ==
[2021-07-19] MEDS ORDERED: Dexamethasone 4 MG Tab PO ONE (21:13)
== END 2021-07-19 21:31 | disposition home or self-care (01) ==
LOC: MW.ED 19:30
DX: J01.90 Acute sinusitis, unspecified (principal); J45.909 Unspecified asthma, uncomplicated; E66.9 Obesity, unspecified; Z68.42 Body mass index [BMI] 45.0-49.9, adult; Z90.49 Acquired absence of other specified parts of digestive tract; Z87.898 Personal history of other specified conditions; Z88.8 Allergy status to other drugs, medicaments and biological substances
CPT/HCPCS: 71045; 71045-26; 81025; 93005; 99285-25; J8540

== ENCOUNTER 2021-08-17 21:34 | Emergency (ER) | payer MEDICARE, MEDICAID ==
[2021-08-17] MEDS ORDERED: Aspirin 81 MG Tab.Chew PO ONE (21:50)
[2021-08-17 22:41] LABS: BLOOD UREA NITROGEN,BUN 7 mg/dL (7.0-18.0); CARBON DIOXIDE,CO2 25.9 mmol/L (21.0-32.0); CHLORIDE,CL 103 mmol/L (98-107); ESTIMATED GFR > 60.0 ml/min; GLUCOSE RANDOM 87 mg/dL (74-106); POTASSIUM,K 3.4 mmol/L (3.5-5.1); SODIUM,NA 138 mmol/L (136-145)
[2021-08-17] MEDS ORDERED: Potassium Chloride 10% 20 MEQ/15 ML Soln 30 ML UD Cup PO ONE (22:49)
== END 2021-08-17 23:48 | disposition home or self-care (01) ==
LOC: MW.ED 21:34
DX: R07.89 Other chest pain (principal); E87.6 Hypokalemia; E66.9 Obesity, unspecified; Z68.43 Body mass index [BMI] 50.0-59.9, adult; Z91.018 Allergy to other foods; Z91.030 Bee allergy status; Z88.8 Allergy status to other drugs, medicaments and biological substances
CPT/HCPCS: 36415; 71045; 71045-26; 80048; 83735; 84484; 85025; 93005; 93010; 99284; 99285-25; A9270-GY

== ENCOUNTER 2021-09-25 18:07 | Emergency (ER) | payer MEDICARE, MEDICAID, OTHER ==
[2021-09-25] MEDS ORDERED: Tetracaine HCl/PF 0.5% 4 ML Bottle EYEBOTH ONE (19:33)
[2021-09-25] MEDS ORDERED: Erythromycin Base 0.5% Ophth Oint 1 GM Tube EYEBOTH ONE (20:21)
[2021-09-25] MEDS ORDERED: Amoxicillin/Clavulanate K 875-125 MG Tab PO ONE (20:21)
== END 2021-09-25 20:41 | disposition home or self-care (01) ==
LOC: MW.ED 18:07
DX: H10.33 Unspecified acute conjunctivitis, bilateral (principal); H66.001 Acute suppurative otitis media without spontaneous rupture of ear drum, right ear; J45.909 Unspecified asthma, uncomplicated; E66.9 Obesity, unspecified; Z68.43 Body mass index [BMI] 50.0-59.9, adult; Z88.8 Allergy status to other drugs, medicaments and biological substances; Z91.048 Other nonmedicinal substance allergy status; Z79.899 Other long term (current) drug therapy; Z90.49 Acquired absence of other specified parts of digestive tract
CPT/HCPCS: 99282; A9270; 99283

== ENCOUNTER 2021-10-25 11:41 | Emergency (ER) | payer OTHER, MEDICARE, MEDICAID ==
[2021-10-25] MEDS ORDERED: Ibuprofen 600 MG Tab PO ONE (12:30)
[2021-10-25] MEDS ORDERED: Cyclobenzaprine 10 MG Tab PO ONE (12:30)
== END 2021-10-25 13:14 | disposition home or self-care (01) ==
LOC: MW.ED 11:41
DX: M54.2 Cervicalgia (principal); J45.909 Unspecified asthma, uncomplicated; E66.9 Obesity, unspecified; Z91.030 Bee allergy status; Z88.6 Allergy status to analgesic agent; Z91.018 Allergy to other foods; Z68.43 Body mass index [BMI] 50.0-59.9, adult; V49.40XA Driver injured in collision with unspecified motor vehicles in traffic accident, initial encounter; Y92.511 Restaurant or cafe as the place of occurrence of the external cause
CPT/HCPCS: 81025; 99284; A9270; 99283

== ENCOUNTER 2022-01-19 15:50 | Emergency (ER) | payer MEDICARE, MEDICAID ==
[2022-01-19] MEDS ORDERED: Sodium Chloride 0.9% 1,000 ML IV ONE (16:12)
[2022-01-19] MEDS ORDERED: Ondansetron 4 MG/2 ML SDV IVPUSH ONE (16:12)
[2022-01-19] MEDS ORDERED: Ondansetron 4 MG Tab.DIS PO ONE (16:37)
[2022-01-19 17:45] LABS: CARBON DIOXIDE,CO2 27.5 mmol/L (21.0-32.0); POTASSIUM,K 3.6 mmol/L (3.5-5.1)
[2022-01-19] MEDS ORDERED: Sulfamethoxazole/Trimethoprim 800-160 MG Tab PO ONE (19:04)
== END 2022-01-19 19:36 | disposition home or self-care (01) ==
LOC: MW.ED 15:50
DX: N39.0 Urinary tract infection, site not specified (principal); J45.909 Unspecified asthma, uncomplicated; M79.7 Fibromyalgia; E66.9 Obesity, unspecified; Z68.43 Body mass index [BMI] 50.0-59.9, adult; Z88.6 Allergy status to analgesic agent; Z91.030 Bee allergy status; Z88.8 Allergy status to other drugs, medicaments and biological substances; Z91.018 Allergy to other foods; Z79.899 Other long term (current) drug therapy
CPT/HCPCS: 36415; 76856; 80053; 81001; 83690; 84703; 85025; 87086; 99284; A9270

== ENCOUNTER 2022-08-01 00:38 | Emergency (ER) | payer MEDICARE, MEDICAID ==
[2022-08-01] MEDS ORDERED: Clindamycin HCl 150 MG Cap PO STA (01:20)
[2022-08-01] MEDS ORDERED: Acetaminophen/oxyCODONE 325-5 MG Tab PO ONE (01:20)
== END 2022-08-01 01:47 | disposition home or self-care (01) ==
LOC: MW.ED 00:38
DX: K04.7 Periapical abscess without sinus (principal); J45.909 Unspecified asthma, uncomplicated; E66.9 Obesity, unspecified; Z68.43 Body mass index [BMI] 50.0-59.9, adult; Z91.030 Bee allergy status; Z88.8 Allergy status to other drugs, medicaments and biological substances; Z91.018 Allergy to other foods
CPT/HCPCS: 99282; A9270; 99283

== ENCOUNTER 2022-11-03 10:38 | Emergency (ER) | payer MEDICARE, MEDICAID ==
[2022-11-03] MEDS ORDERED: Ondansetron 4 MG Tab.DIS PO ONE (11:03)
[2022-11-03] MEDS ORDERED: Ketorolac 10 MG Tab PO ONE (12:59)
[2022-11-03] MEDS ORDERED: Acetaminophen/oxyCODONE 325-10 MG Tab PO ONE (13:47)
[2022-11-03] MEDS ORDERED: Morphine 4 MG/ML Syringe IM ONE (14:28)
== END 2022-11-03 15:03 | disposition home or self-care (01) ==
LOC: MW.ED 10:38
DX: M79.10 Myalgia, unspecified site (principal); J45.909 Unspecified asthma, uncomplicated; E66.9 Obesity, unspecified; Z88.8 Allergy status to other drugs, medicaments and biological substances; Z91.030 Bee allergy status; Z91.048 Other nonmedicinal substance allergy status; Z68.42 Body mass index [BMI] 45.0-49.9, adult
CPT/HCPCS: 70450; 72125; 72128; 72131; 96372; 99284; A9270; J2270; 99282

== ENCOUNTER 2024-08-03 11:36 | Emergency (ER) | payer MEDICAID, MEDICARE ==
[2024-08-03] MEDS ORDERED: Sodium Chloride 0.9% 10 ML Syringe FLUSH PRN (11:48)
[2024-08-03] MEDS ORDERED: Sodium Chloride 0.9% 2.5 ML Syringe FLUSH PRN (11:48)
[2024-08-03] MEDS ORDERED: Sodium Chloride 0.9% 20 ML SDV IV PRN (11:48)
[2024-08-03 11:57] LABS: BASOPHILS ABSOLUTE AUTO 0.04 K/uL (0.00-0.20); BASOPHILS PERCENT AUTO 0.4 % (0.0-1.0); EOSINOPHILS PERCENT AUTO 0.9 % (0.0-6.0); HEMATOCRIT 38.6 % (37.0-47.0); HEMOGLOBIN 13.4 g/dL (12.0-16.0); IMMATURE GRAN ABSOLUTE AUTO 0.03 K/uL (0.00-0.05); IMMATURE GRAN PERCENT AUTO 0.3 % (0.0-0.4); LYMPHOCYTES ABSOLUTE AUTO 3.58 K/uL (1.00-4.80); LYMPHOCYTES PERCENT AUTO 33.5 % (24.0-44.0); MEAN CORPUSCULAR HEMOGLOBIN 28.8 pg (28.0-32.0); MEAN CORPUSCULAR HGB CONC 34.7 g/dL (32.0-36.0); MEAN PLATELET VOLUME 8.5 fL (9.4-12.3); MONOCYTES ABSOLUTE AUTO 0.74 K/uL (0.00-0.80); MONOCYTES PERCENT AUTO 6.9 % (0.0-8.0); NEUTROPHILS ABSOLUTE AUTO 6.21 K/uL (1.80-7.70); PLATELET COUNT,PLT 353 K/uL (150-400); RED BLOOD CELL COUNT 4.65 M/uL (4.10-5.30)
[2024-08-03 12:31] LABS: ALANINE AMINOTRANSFERASE,ALT 13 IU/L (14-63); ALBUMIN 3.2 g/dL (3.4-5.0); ALKALINE PHOSPHATASE 67 U/L (46-116); ASPARTATE AMNIOTRANSFERASE,AST 10 IU/L (15-37); BILIRUBIN TOTAL 0.4 mg/dL (0.2-1.0); BLOOD UREA NITROGEN,BUN 7 mg/dL (7.0-18.0); CALCIUM 8.4 mg/dL (8.5-10.1); CARBON DIOXIDE,CO2 29.6 mmol/L (21.0-32.0); CHLORIDE,CL 106 mmol/L (98-107); CREATININE 0.8 mg/dL (0.6-1.0); EST CRCL DRUG DOSING (CG) 79.11 mL/min; GLUCOSE RANDOM 96 mg/dL (74-106); LIPASE 18 U/L (16-77); MAGNESIUM 1.7 mg/dL (1.8-2.4); POTASSIUM,K 3.1 mmol/L (3.5-5.1); PROTEIN TOTAL,TP 6.3 g/dL (6.4-8.2); SODIUM,NA 143 mmol/L (136-145)
[2024-08-03 12:33] LABS: ESTIMATED GFR 100 mL/min (>60)
[2024-08-03] MEDS: Potassium Chloride 20 MEQ Tab.ER PO ONE (12:44)
[2024-08-03 13:03] LABS: BILIRUBIN,URINE NEGATIVE (NEGATIVE); COLOR,URINE YELLOW; GLUCOSE,URINE NEGATIVE (NEGATIVE); KETONES,URINE NEGATIVE (NEGATIVE); LEUKOCYTE ESTERASE,URINE TRACE (NEGATIVE); NITRITE,URINE NEGATIVE (NEGATIVE); OCCULT BLOOD,URINE TRACE-LYSED (NEGATIVE); PH,URINE 6.5 (5.0-8.0); PROTEIN,URINE NEGATIVE (NEGATIVE); UROBILINOGEN,URINE 0.2 EU/dL (<2.0)
[2024-08-03 13:04] LABS: APPEARANCE,URINE HAZY
[2024-08-03 13:08] LABS: BACTERIA,URINE 1+ (NEGATIVE); MUCUS,URINE MODERATE (NONE-MOD); SQUAMOUS EPITHELIAL CELLS,UR MODERATE
[2024-08-03 13:13] LABS: AMPHETAMINES SCREEN, URINE NEGATIVE (CUTOFF=500); BARBITURATE SCREEN,URINE NEGATIVE (CUTOFF=200); BENZODIAZEPINES SCREEN,URINE NEGATIVE (CUTOFF=150); BUPRENORPHINE SCREEN,URINE NEGATIVE (CUTOFF=10); METHADONE SCREEN, URINE NEGATIVE (CUTOFF=200); METHAMPHETAMINES SCREEN, URINE NEGATIVE (CUTOFF=500); OXYCODONE SCREEN,URINE NEGATIVE (CUT0FF=100); PCP SCREEN,URINE NEGATIVE (CUTOFF=25); THC SCREEN,URINE 20 NG/ML NEGATIVE (CUTOFF=50)
[2024-08-03] MEDS: Aspirin 81 MG Tab.Chew PO ONE (14:16)
[2024-08-03] MEDS: Magnesium Oxide 400 MG Tab PO ONE (14:54)
[2024-08-03] MEDS: Ibuprofen 600 MG Tab PO ONE (15:44)
[2024-08-03] MEDS: Acetaminophen 500 MG Tab PO ONE (16:01)
== END 2024-08-03 17:23 | disposition home or self-care (01) ==
LOC: MW.ED 11:36
DX: M94.0 Chondrocostal junction syndrome [Tietze] (principal); I10 Essential (primary) hypertension; E66.9 Obesity, unspecified; J45.909 Unspecified asthma, uncomplicated; Z91.030 Bee allergy status; Z88.8 Allergy status to other drugs, medicaments and biological substances; Z91.018 Allergy to other foods; Z79.51 Long term (current) use of inhaled steroids; Z79.84 Long term (current) use of oral hypoglycemic drugs; Z90.49 Acquired absence of other specified parts of digestive tract; Z68.42 Body mass index [BMI] 45.0-49.9, adult
CPT/HCPCS: 36415; 71045; 80053; 80305; 81001; 83690; 83735; 84484; 84703; 85025; 85379; 87086; 93005; 99285; A9270; 93010; 99283

== ENCOUNTER 2024-12-22 18:54 | Emergency (ER) | payer MEDICAID ==
[2024-12-22] MEDS: Amoxicillin/Clavulanate K 875-125 MG Tab PO ONE (19:17)
== END 2024-12-22 19:23 | disposition home or self-care (01) ==
LOC: MW.ED 18:54
DX: K08.89 Other specified disorders of teeth and supporting structures (principal); I10 Essential (primary) hypertension; J45.909 Unspecified asthma, uncomplicated; E66.9 Obesity, unspecified; Z88.8 Allergy status to other drugs, medicaments and biological substances; Z79.84 Long term (current) use of oral hypoglycemic drugs; Z79.899 Other long term (current) drug therapy
CPT/HCPCS: 99282; A9270; 99283